=== PATIENT | male | born 1955 | race American Indian/Alaskan Native ===

== ENCOUNTER 2019-12-13 06:02 | Day surgery (SDC) | payer MEDICAID ==
[~2019-12-13 06:02] MED LIST: ceFAZolin/Water 2 GM/20 ML 2 GM/20 ML SYRINGE IV NR
[2019-12-13] MEDS ORDERED: ONDANSETRON 4 MG/2 ML INJ IV PRN (07:06)
[2019-12-13 07:11] LABS: Hematocrit 30.9 % (35.5-45.6); Hemoglobin 10.3 gm/dl (11.8-15.2); Mean Corpuscular HGB Conc 34 % (32-34); Mean Corpuscular Volume 90 fl (84-94); Platelet Count 231 K/mm3 (140-440); Red Blood Count 3.44 M/mm3 (3.65-5.03); Red Cell Distribution Width 15.8 % (13.2-15.2)
[2019-12-13] MEDS ORDERED: SODIUM CHLORIDE 0.9% 1000 ML 1,000 ML IV SCH (07:15)
--- NOTE | 2019-12-13 07:15 | Anesthesia Day of Surgery ---
Anesthesia Day of Surgery - Day of Surgery Patient Examined: Yes Patient H&P Reviewed: Yes Patient is NPO: Yes
--- NOTE | 2019-12-13 07:19 | Anesthesia Consultation ---
Anesthesia Consult and Med Hx Date of service: 12/13/19 - Airway Anesthetic Teeth Evaluation: Chipped ROM Head & Neck: Adequate Mental/Hyoid Distance: Adequate Mallampati Class: Class I Intubation Access Assessment: Good - Cardiac Exam Cardiac Exam: RRR (IRregular) - Pre-Operative Health Status ASA Pre-Surgery Classification: ASA3 Proposed Anesthetic Plan: General - Pulmonary Hx Smoking: Yes - Cardiovascular System Hx Hypertension: Yes (HX CHF) - Central Nervous System Hx Psychiatric Problems: No - Endocrine Hx Renal Disease: Yes Hx End Stage Renal Disease: Yes Hx Non-Insulin Dependent Diabetes: Yes - Other Systems Hx Cancer: No - Additional Comments Anesthesia Medical History Comments: Pt non-compliant and adjusts his own meds- decreased his BP meds. Was hospitalized [id number] for CHF and fluid overload
[2019-12-13 07:23] LABS: Calcium 8.5 mg/dL (8.4-10.2)
[2019-12-13] MEDS ORDERED: THROMBIN (RECOMBINANT) 5,000 UNIT VIAL TP ONE ×2 (07:31→08:45)
[2019-12-13] MEDS ORDERED: GELATIN SPONGE SIZE 100 TP ONE (07:31)
[2019-12-13] MEDS ORDERED: SODIUM CHLORIDE 0.9% 250ML 250 ML ONE (07:31)
[2019-12-13] MEDS ORDERED: PROTAMINE SULFATE 50 MG/5 ML INJ ONE (07:31)
[2019-12-13] MEDS ORDERED: HEPARIN 10,000 UNITS/10 ML VIAL ONE (07:31)
[2019-12-13] MEDS ORDERED: fentaNYL 100 MCG/2 ML INJ ONE (07:36)
[2019-12-13] MEDS ORDERED: propofoL 200 MG/20 ML VIAL IV ONE (07:36)
[2019-12-13] MEDS ORDERED: ONDANSETRON 4 MG/2 ML INJ ONE (07:36)
[2019-12-13] MEDS ORDERED: dexAMETHasone 20 MG/5 ML VIAL ONE (07:36)
[2019-12-13] MEDS ORDERED: LIDOCAINE MPF (2%) 20 MG/1 ML VIAL 5 ML ONE ×2 (07:36→08:24)
[2019-12-13] MEDS ORDERED: ePHEDrine SULFATE 50 MG/1 ML INJ ONE (08:36)
[2019-12-13] MEDS ORDERED: HYDROmorphone 1 MG/1 ML INJ ONE (08:40)
[2019-12-13] MEDS ORDERED: HEPARIN 10,000 UNITS/10 ML VIAL IR ONE (08:43)
[2019-12-13] MEDS ORDERED: SODIUM CHLORIDE 0.9% 250 ML IVPB IR ONE (08:44)
[2019-12-13] MEDS ORDERED: SODIUM CHLORIDE 0.9% IRR 1,500 ML BOTTLE IR ONE (08:45)
[2019-12-13] MEDS ORDERED: PHENYLEPHRINE/NS 1,000 MCG/10 ML SYRINGE (OR USE) IV ONE (10:00)
[2019-12-13] MEDS ORDERED: GLYCOPYRROLATE 0.4 MG/2 ML INJ ONE (10:00)
[2019-12-13] MEDS ORDERED: oxyCODONE /ACETAMINOPHEN 5-325MG TAB PO PRN (10:02)
--- NOTE | 2019-12-13 10:02 | Post Operative Note ---
Date of procedure: 12/13/19 Pre-op diagnosis: ESRD Post-op diagnosis: same Procedure: Left Arm AV Graft Insertion Anesthesia: GETA Surgeon: CARINA BOWDEN Estimated blood loss: other (25ml) Pathology: none Condition: stable Disposition: PACU
--- NOTE | 2019-12-13 10:04 | Short Stay Summary ---
Short Stay Documentation Date of service: 12/13/19 - History H&P: obtained from office Past Medical History: ESRD, hypertension - Allergies and Medications Current Medications: Allergies No Known Allergies Allergy (Unverified 12/11/19 17:09) Home Medications Medication Instructions Recorded Confirmed Last Taken Type Atorvastatin [Lipitor Tab] 80 mg PO QHS 12/11/19 12/13/19 12/12/19 09:00 History B Complex 11/Folic/C/Biot/Zinc 1 tab PO DAILY 12/11/19 12/13/19 12/12/19 09:00 History [Dialyvite with Zinc Tablet] carvediloL [Coreg] 6.25 mg PO BID 12/11/19 12/13/19 12/12/19 09:00 History hydrALAZINE [Apresoline TAB] 100 mg PO TID 12/11/19 12/13/19 12/12/19 09:00 History Active Medications Fentanyl (Sublimaze) 50 mcg IV Q5MIN PRN PRN Reason: Pain , Severe (7-10) Stop: 12/13/19 20:00 Cefazolin Sodium (Ancef/Sterile Water 2 Gm/20 Ml) 2 gm in 20 mls @ 80 mls/hr IV PREOP NR; Protocol Stop: 12/13/19 23:59 Sodium Chloride (Nacl 0.9% 1000 Ml) 1,000 mls @ 42 mls/hr IV DIRECT SYLVIA Last Admin: 12/13/19 07:15 Dose: 42 mls/hr Documented by: Ondansetron HCl (Zofran) 4 mg IV ONCE PRN PRN Reason: Nausea And Vomiting Stop: 12/13/19 18:00 Oxycodone/Acetaminophen (Percocet 5/325) 2 tab PO Q4H PRN PRN Reason: Pain, Moderate (4-6) - Physical exam General appearance: no acute distress HEENT: Atraumatic Lungs: Normal air movement Heart: Regular rate Extremities: no ischemia - Hospital course Hospital course: the patient was taken to the operating room and had a left arm av graft insertion performed. please refer to the operative note concerning details of the procedure. the patient tolerated the procedure well and was discharged home in stable condition. - Disposition Condition at discharge: Stable Disposition: DC-01 TO HOME OR SELFCARE - Discharge Diagnoses (1) ESRD (end stage renal disease) on dialysis Status: Acute Short Stay Discharge Plan Follow up with: LETI VALDES MD [Primary Care Provider] - 7 Days
--- NOTE | 2019-12-13 10:24 | Operative Report ---
STAFF SURGEON: Ramiro Hawthorne MD PREOPERATIVE DIAGNOSIS: End-stage renal disease. POSTOPERATIVE DIAGNOSIS: End-stage renal disease. PROCEDURE PERFORMED: Left arm AV graft insertion. COMPLICATIONS: None. ESTIMATED BLOOD LOSS: 25 mL. ANESTHESIA: General. INDICATIONS FOR PROCEDURE: This is a 64-year-old gentleman with end-stage renal disease, on hemodialysis via right IJ PermCath, in need of extremity dialysis access. The patient had preoperative vein mapping which did not demonstrate any suitable veins for fistula creation. Therefore, the patient was slated to undergo AV graft insertion. The patient was explained the risks, benefits and alternatives of procedure, expressed understanding and wished to proceed. DESCRIPTION OF PROCEDURE: After appropriate consent was obtained, the patient was brought back to the operating room and placed on the operating table in supine position with the left arm extended. The patient was given appropriate medication for general anesthesia, had LMA placed without difficulty. The left arm was prepped and draped in usual sterile fashion with ChloraPrep. Appropriate preoperative antibiotics were administered and appropriate time-out performed indicating correct patient, procedure, site of procedure. I then began the operation by making a longitudinal incision near the antecubital fossa. This was carried through the subcutaneous tissue with a combination of blunt dissection and electrocautery. Dissection was continued through the bicipital aponeurosis which allowed us to expose the brachial artery. This was found to be suitable in size for arterial inflow and therefore the brachial artery was mobilized for appropriate distance both proximally and distally. We then turned our attention to the axilla, made a transverse incision. Incision was carried through the subcutaneous tissue with a combination of blunt dissection and electrocautery. Dissection was continued through the fascia overlying the axillary neurovascular bundle. Axillary vein was identified and found to be suitable for venous outflow, was mobilized for appropriate distance both proximally and distally, and we then proceeded to create a subcutaneous tunnel bringing through a 4-7 mm Propaten graft. The graft was appropriately spatulated. The patient was given 5000 units of unfractionated heparin. After appropriate timeout elapsed, vascular clamps were placed on the brachial artery both proximally and distally. Longitudinal arteriotomy was made with an 11 blade and extended with Valdes scissors. An end-to-side anastomosis was performed with a running 6-0 Prolene suture. Once complete flow was established through the graft, we had a nice pulsatile flow. Graft was then cut to an appropriate length, spatulated. Vascular clamps were then placed on the axillary vein both proximally and distally. Longitudinal venotomy was performed with a #11 blade and extended with Valdes scissors. An end-to-side anastomosis was performed with a running 5-0 Prolene suture. Once complete flow was reestablished through the graft, which had a nice palpable thrill, we then looked to obtain hemostasis along our suture lines, which was obtained with hemostatic agents. Once we were satisfied with hemostasis, then both wounds were closed with interrupted 3-0 PDS and the skin was approximated with konrad. Appropriate dressing was placed. The patient tolerated the procedure well, emerged from general anesthesia, had LMA removed, and was sent to recovery in stable condition. All the sponges, instrument and needle counts were correct at completion of the operation. JOB# [id number] CYNTHIA/JHOANA
[2019-12-13] MEDS: fentaNYL 100 MCG/2 ML INJ IV PRN ×2 (10:30→10:40)
[2019-12-13 12:17] VITALS: BP 159/75
--- NOTE | 2019-12-13 21:40 | Post Anesthesia Evaluation ---
- Post Anesthesia Evaluation Patient Participated: Yes Airway Patent: Yes Stable Respiratory Function: Yes Nausea/Vomiting: No Temp > 96.8F: Yes Pain Manageable: Yes Adequeate Hydration: Yes Anesthesia Complications: No Block Receding Appropriately: Not Applicable Patient on Ventilator: No
== END 2019-12-13 12:00 | disposition home or self-care (01) ==
LOC: OR 06:02
PROVIDERS: ATTEND Surgery Vascular Surgery
DX: I13.2 Hypertensive heart and chronic kidney disease with heart failure and with stage 5 chronic kidney disease, or end stage renal disease (principal); E11.22 Type 2 diabetes mellitus with diabetic chronic kidney disease; N18.6 End stage renal disease; I50.9 Heart failure, unspecified; F17.210 Nicotine dependence, cigarettes, uncomplicated; Z99.2 Dependence on renal dialysis; Z98.890 Other specified postprocedural states; Z79.899 Other long term (current) drug therapy
CPT/HCPCS: 36415; 36830; 80048; 82962; 85027; A4649; C1768; J0690; J1100; J1170; J1644; J2370; J2405; J2704; J2720; J3010; J7030; J7050